=== PATIENT | female | born 1990 | race Two or more races ===

== ENCOUNTER 2017-12-04 21:50 | Emergency (ER) | payer MEDICAID ==
[~2017-12-04] VITALS: Ht 165.1 cm; Wt 77.1 kg
--- NOTE | 2017-12-04 21:55 | Emergency Room Report ---
History of Present Illness General Chief Complaint: Abdominal Pain Source: Patient, EMS Present Illness HPI Patient presents with abdominal pain. She has a history of gastritis. She's been vomiting. She states she is 2 months . She states the pain is severe. She's been vomiting but no blood. There's no fevers. The pain is epigastric and constant. It's burning and she feels acid. No melena. She's recently hospitalized for weak at [facility]. Not given any medications at discharge. No URI sy. No chest pain. No back pain. Allergies: Coded Allergies: No Known Allergies (Unverified , 12/04/17) Patient History Social History: Denies: smoking, alcohol use, drug use Social History Narrative has 2 children at home Last Menstrual Period: unk Now: Yes - 8 weeks : 3 Para: 2 Reviewed Nursing Documentation: PMH: Agreed; PSxH: Agreed Nursing Documentation-PM Past Medical History: No History, Except For Hx Gastrointestinal Problems: Yes - GASTRITIS History Of Psychiatric Problem: Yes - ANXIETY Review of Systems All Other Systems: negative except mentioned in HPI Physical Exam Vital Signs Date Time Temp Pulse Resp B/P (MAP) Pulse Ox O2 Delivery O2 Flow Rate FiO2 12/04/17 21:46 98.0 108 22 153/76 99 Room Air 98.1 Sp02 EP Interpretation: reviewed, normal General Appearance: GCS 15, moderate distress Head: normocephalic Eyes: bilateral eye normal inspection, bilateral eye PERRL ENT: moist mucus membranes Neck: supple Respiratory: lungs clear, normal breath sounds Cardiovascular #1: regular rate, rhythm Cardiovascular #2: 2+ radial (R) Gastrointestinal: normal inspection, no mass, non-distended, no guarding, no rebound, tenderness - epigastric, decreased bowel sounds Musculoskeletal: back normal, normal range of motion Neurologic: alert, oriented x3, grossly normal Psychiatric: anxious - and in pain Skin: normal inspection, warm/dry Medical Decision Making Diagnostic Impression: Primary Impression: Epigastric pain Additional Impression: First trimester ER Course This patient is a 2 months his presents with severe epigastric pain with history of gastritis. Differential includes gastritis, peptic ulcer, GERD , Marguerite-Arora tear, pancreatitis amongst others. She'll be evaluated with labs including a quantitative hCG. She'll be treated with IV hydration, Reglan , Benadryl, pepcid and morphine. In addition to that she'll be given Mylanta and viscous lidocaine. Labs with normal CBC and slightly high WBC. CMP normal and normal lipase. UA clear. Quant = [id number]. Pain returned, not as severe - fentanyl given. Pain is controlled. Able to tolerate PO. Discussed treatment plan and medications prescribed. Some continued pain - percocet given (minimal compared to when presented). Patient stable for outpatient observation and treatment Laboratory Tests Test 12/04/17 22:20 12/05/17 01:10 White Blood Count 11.7 K/UL (4.8-10.8) H Red Blood Count 5.04 M/UL (4.20-5.40) Hemoglobin 14.2 G/DL (12.0-16.0) Hematocrit 40.8 % (37.0-47.0) Mean Corpuscular Volume 81 FL (80-99) Mean Corpuscular Hemoglobin 28.1 PG (27.0-31.0) Mean Corpuscular Hemoglobin Concent 34.7 G/DL (32.0-36.0) Red Cell Distribution Width 11.9 % (11.6-14.8) Platelet Count 286 K/UL (150-450) Mean Platelet Volume 7.4 FL (6.5-10.1) Neutrophils (%) (Auto) 59.9 % (45.0-75.0) Lymphocytes (%) (Auto) 28.0 % (20.0-45.0) Monocytes (%) (Auto) 7.4 % (1.0-10.0) Eosinophils (%) (Auto) 3.7 % (0.0-3.0) H Basophils (%) (Auto) 1.0 % (0.0-2.0) Prothrombin Time 10.6 SEC (9.30-11.50) Prothrombin Time INR 1.0 (0.9-1.1) PTT 27 SEC (23-33) Sodium Level 140 MMOL/L (136-145) Potassium Level 3.5 MMOL/L (3.5-5.1) Chloride Level 105 MMOL/L (98-107) Carbon Dioxide Level 24 MMOL/L (21-32) Anion Gap 11 mmol/L (5-15) Blood Urea Nitrogen 11 mg/dL (7-18) Creatinine 0.8 MG/DL (0.55-1.30) Estimate Glomerular Filtration Rate > 60 mL/min (>60) Glucose Level 101 MG/DL (74-106) Calcium Level 10.3 MG/DL (8.5-10.1) H Total Bilirubin 0.3 MG/DL (0.2-1.0) Aspartate Amino Transferase (AST) 8 U/L (15-37) L Alanine Aminotransferase (ALT) 19 U/L (12-78) Alkaline Phosphatase 83 U/L (46-116) Total Protein 8.4 G/DL (6.4-8.2) H Albumin 4.0 G/DL (3.4-5.0) Globulin 4.4 g/dL Albumin/Globulin Ratio 0.9 (1.0-2.7) L Lipase 119 U/L (73-393) Human Chorionic Gonadotropin, Quant 38824 mIU/mL (1-6) H Urine Color Yellow Urine Appearance Clear Urine pH 6 (4.5-8.0) Urine Specific [place] 1.025 (1.005-1.035) Urine Protein 2+ (NEGATIVE) H Urine Glucose (UA) Negative (NEGATIVE) Urine Ketones Negative (NEGATIVE) Urine Blood Negative (NEGATIVE) Urine Nitrite Negative (NEGATIVE) Urine Bilirubin Negative (NEGATIVE) Urine Urobilinogen Normal MG/DL (0.0-1.0) Urine Leukocyte Esterase 1+ (NEGATIVE) H Urine RBC 2-4 /HPF (0 - 2) H Urine WBC 2-4 /HPF (0 - 2) Urine Squamous Epithelial Cells Few /LPF (NONE/OCC) Urine Bacteria Few /HPF (NONE) Urine Mucus Few /LPF (NONE/OCC) H Last Vital Signs Date Time Temp Pulse Resp B/P (MAP) Pulse Ox O2 Delivery O2 Flow Rate FiO2 12/05/17 03:27 75 15 109/62 100 Room Air 12/05/17 03:12 98.0 Status: improved Disposition: HOME, SELF-CARE Condition: Improved Scripts Famotidine (PEPCID AC) 20 Mg Tablet 20 MG PO DAILY, #30 TAB Prov: Kwadwo Mcfarlane M.D. 12/05/17 Promethazine HCl (Promethegan) 25 Mg Supp.rect 25 MG RECTAL Q8HR PRN for Nausea & Vomiting, #3 SUPP 1 Refill Prov: Kwadwo Mcfarlane M.D. 12/05/17 Promethazine Hcl* (PHENERGAN*) 25 Mg Tablet 25 MG ORAL Q8HR, #8 TAB 1 Refill Prov: Kwadwo Mcfarlane M.D. 12/05/17 Hydrocodone Bit/Acetaminophen 5-325* (NORCO 5-325*) 1 Each Tablet 1 TAB ORAL Q6H PRN for For Pain, #10 TAB 0 Refills Prov: Kwadwo Mcfarlane M.D. 12/05/17 Kwadwo Mcfarlane M.D. Dec 04, 2017 21:55
[2017-12-04] MEDS ORDERED: Morphine Sulfate 4mg/ml Inj (IV USE ONLY) IVP ONE (22:00)
[2017-12-04] MEDS ORDERED: Mylanta II UD 30ml ORAL ONE (22:00)
[2017-12-04] MEDS ORDERED: Metoclopramide 10mg/2ml Inj IVP ONE (22:00)
[2017-12-04] MEDS ORDERED: Lidocaine 2% Visc 15ml soln ORAL ONE (22:00)
[2017-12-04] MEDS ORDERED: DiphenhydrAMINE 50mg/ml Inj IVP ONE (22:00)
[2017-12-04 22:24] LABS: EOSINOPHILS % (AUTO) 3.7 % (0.0-3.0); HEMATOCRIT 40.8 % (37.0-47.0); HEMOGLOBIN 14.2 G/DL (12.0-16.0); MEAN CORPUSCULAR VOLUME 81 FL (80-99); MONOCYTES % (AUTO) 7.4 % (1.0-10.0); NEUTROPHILS % (AUTO) 59.9 % (45.0-75.0); PLATELET COUNT 286 K/UL (150-450); RED BLOOD COUNT 5.04 M/UL (4.20-5.40); RED CELL DISTRIBUTION WIDTH 11.9 % (11.6-14.8); WHITE BLOOD COUNT 11.7 K/UL (4.8-10.8)
[2017-12-04 22:30] VITALS: BP 116/74
[2017-12-04] MEDS ORDERED: fentaNYL 100 mcg/2 mL IV ONE (22:30)
[2017-12-04 22:36] LABS: ANION GAP 11 mmol/L (5-15); BLOOD UREA NITROGEN 11 mg/dL (7-18); CALCIUM 10.3 MG/DL (8.5-10.1); CARBON DIOXIDE 24 MMOL/L (21-32); CHLORIDE 105 MMOL/L (98-107); CREATININE 0.8 MG/DL (0.55-1.30); POTASSIUM 3.5 MMOL/L (3.5-5.1); SODIUM 140 MMOL/L (136-145)
[2017-12-04 22:41] LABS: ALANINE AMINOTRANSFERASE 19 U/L (12-78); ALBUMIN/GLOBULIN RATIO 0.9 (1.0-2.7); ALKALINE PHOSPHATASE 83 U/L (46-116); ASPARTATE AMINO TRANSFERASE 8 U/L (15-37); BILIRUBIN,TOTAL 0.3 MG/DL (0.2-1.0)
[2017-12-05 00:35] VITALS: BP 106/60
[2017-12-05] MEDS ORDERED: fentaNYL 100 mcg/2 mL IV ONE (01:00)
[2017-12-05 01:27] LABS: APPEARANCE,URINE CLEAR; BILIRUBIN, URINE NEGATIVE (NEGATIVE); GLUCOSE, URINE (UA) NEGATIVE (NEGATIVE); KETONES,URINE NEGATIVE (NEGATIVE); LEUKOCYTE ESTERASE ,URINE 1+ (NEGATIVE); NITRITE,URINE NEGATIVE (NEGATIVE); PH,URINE 6 (4.5-8.0); PROTEIN,URINE 2+ (NEGATIVE); UROBILINOGEN,URINE NORMAL MG/DL (0.0-1.0)
[2017-12-05 01:30] VITALS: BP 116/69
[2017-12-05 01:36] LABS: COLOR,URINE YELLOW
[2017-12-05] MEDS ORDERED: PHENERGAN SUPP25 MG RECTAL (03:06)
[2017-12-05] MEDS ORDERED: PEPCID AC20 M2 PO (03:06)
[2017-12-05] MEDS ORDERED: NORCO 5-325 TA1 EACH ORAL (03:06)
[2017-12-05] MEDS ORDERED: PHENERGAN25 M1 ORAL (03:06)
[2017-12-05] MEDS ORDERED: Mylanta II UD 30ml ORAL ONE (03:15)
[2017-12-05] MEDS ORDERED: oxyCODONE HCL/Acetaminophen 5/325mg ORAL ONE (03:15)
[2017-12-05 03:27] VITALS: BP 109/62
== END 2017-12-05 03:27 | disposition home or self-care (01) ==
LOC: EDBD 21:50 → EMR 22:44
DX: O99.611 Diseases of the digestive system complicating pregnancy, first trimester (principal); K29.70 Gastritis, unspecified, without bleeding; O99.341 Other mental disorders complicating pregnancy, first trimester; F41.9 Anxiety disorder, unspecified; Z3A.08 8 weeks gestation of pregnancy
CPT/HCPCS: 36415; 80053; 81003; 83690; 84702; 85025; 85610; 85730; 96361; 96374; 96375; 99285; J1200; J2270; J2765; J3010; S0028

== ENCOUNTER 2017-12-11 12:35 | Emergency (ER) | payer MEDICAID ==
[~2017-12-11] VITALS: Ht 165.1 cm; Wt 77.1 kg
[~2017-12-11 12:35] MED LIST: NORCO 5-325 TA1 EACH ORAL; PEPCID AC20 M2 PO; PHENERGAN SUPP25 MG RECTAL; PHENERGAN25 M1 ORAL
[2017-12-11 13:00] VITALS: BP 107/62
[2017-12-11] MEDS ORDERED: Morphine Sulfate 4mg/ml Inj (IV USE ONLY) IVP ONE ×4 (13:00→17:45)
[2017-12-11 13:27] LABS: BASOPHILS % (AUTO) 0.7 % (0.0-2.0); EOSINOPHILS % (AUTO) 3.2 % (0.0-3.0); HEMATOCRIT 41.3 % (37.0-47.0); HEMOGLOBIN 13.9 G/DL (12.0-16.0); LYMPHOCYTES % (AUTO) 23.2 % (20.0-45.0); MEAN CORPUSCULAR VOLUME 81 FL (80-99); MONOCYTES % (AUTO) 5.8 % (1.0-10.0); NEUTROPHILS % (AUTO) 67.2 % (45.0-75.0); PLATELET COUNT 261 K/UL (150-450); RED BLOOD COUNT 5.09 M/UL (4.20-5.40); RED CELL DISTRIBUTION WIDTH 11.6 % (11.6-14.8); WHITE BLOOD COUNT 11.5 K/UL (4.8-10.8)
[2017-12-11 13:49] LABS: ANION GAP 12 mmol/L (5-15); BLOOD UREA NITROGEN 8 mg/dL (7-18); CALCIUM 9.4 MG/DL (8.5-10.1); CARBON DIOXIDE 24 MMOL/L (21-32); CHLORIDE 102 MMOL/L (98-107); CREATININE 0.7 MG/DL (0.55-1.30); POTASSIUM 3.4 MMOL/L (3.5-5.1); SODIUM 138 MMOL/L (136-145)
[2017-12-11 13:53] LABS: ALANINE AMINOTRANSFERASE 18 U/L (12-78); ALBUMIN 3.9 G/DL (3.4-5.0); ALBUMIN/GLOBULIN RATIO 0.9 (1.0-2.7); ALKALINE PHOSPHATASE 68 U/L (46-116); ASPARTATE AMINO TRANSFERASE 10 U/L (15-37); BILIRUBIN,TOTAL 0.4 MG/DL (0.2-1.0)
[2017-12-11] MEDS ORDERED: Lidocaine 2% Visc 15ml soln ORAL ONE (14:00)
[2017-12-11 14:26] LABS: APPEARANCE,URINE CLEAR; BILIRUBIN, URINE NEGATIVE (NEGATIVE); GLUCOSE, URINE (UA) NEGATIVE (NEGATIVE); KETONES,URINE 1+ (NEGATIVE); LEUKOCYTE ESTERASE ,URINE 2+ (NEGATIVE); NITRITE,URINE NEGATIVE (NEGATIVE); PH,URINE 6.5 (4.5-8.0); PROTEIN,URINE 2+ (NEGATIVE); UROBILINOGEN,URINE NORMAL MG/DL (0.0-1.0)
[2017-12-11 14:29] LABS: COLOR,URINE YELLOW
--- NOTE | 2017-12-11 14:53 | Emergency Room Report ---
History of Present Illness General Chief Complaint: Abdominal Pain Source: Patient, Medical Record (Maye Harry DO) Present Illness HPI This patient has a history of severe gastritis. She states that over the past 6 weeks she has been to several different hospitals for the same symptoms. She states she was admitted to [facility] for one week for the same symptoms. She is at 9 weeks . She states she has severe epigastric pain and gastritis. She states it is intolerable. She was seen here 2 weeks ago and given medications to include [place]. She states that her pain has returned and is severe she cannot tolerate it any longer. She states these are the exact same symptoms she has had previously. (Maye Harry DO) Allergies: Coded Allergies: No Known Allergies (Unverified , 12/04/17) Patient History Past Medical History: see triage record, GERD - Gastritis Social History: Denies: smoking, alcohol use, drug use Now: Yes Reviewed Nursing Documentation: PMH: Agreed; PSxH: Agreed (Maye Hrary DO) Nursing Documentation-PMH Past Medical History: No History, Except For Hx Gastrointestinal Problems: Yes - GASTRITIS (Maye Harry DO) Review of Systems All Other Systems: negative except mentioned in HPI (Maye Harry DO) Physical Exam Vital Signs Date Time Temp Pulse Resp B/P (MAP) Pulse Ox O2 Delivery O2 Flow Rate FiO2 12/11/17 12:47 98.0 114 18 148/69 98 Room Air 98.1 Sp02 EP Interpretation: reviewed, normal General Appearance: no apparent distress, alert, GCS 15, non-toxic Head: normocephalic, atraumatic Eyes: bilateral eye normal inspection, bilateral eye PERRL ENT: hearing grossly normal, normal pharynx, no angioedema, normal voice Neck: full range of motion, supple/symm/no masses Respiratory: chest non-tender, lungs clear, normal breath sounds, no respiratory distress, no retraction, no accessory muscle use, speaking full sentences Cardiovascular #1: regular rate, rhythm, no edema Cardiovascular #2: 2+ carotid (R), 2+ carotid (L), 2+ radial (R), 2+ radial (L) , 2+ dorsalis pedis (R), 2+ dorsalis pedis (L) Gastrointestinal: normal bowel sounds, soft, non-distended, no guarding, no rebound, tenderness - Diffusely TTP worse in the epigastrium Rectal: deferred Musculoskeletal: back normal, gait/station normal, normal range of motion, non- tender Neurologic: alert, oriented x3, responsive, motor strength/tone normal, sensory intact, speech normal Psychiatric: judgement/insight normal, memory normal, mood/affect normal, no suicidal/homicidal ideation Skin: normal color, no rash, warm/dry, well hydrated (Maye Harry DO) Medical Decision Making Diagnostic Impression: Primary Impression: Gastritis Additional Impression: Intractable abdominal pain ER Course This 9 week female presents with severe gastritis. The patient has very severe pain. I am unsure if this patient has undiagnosed peptic ulcer disease or severe gastritis. Another consideration is narcotic seeking behavior. However, she has not undergone upper endoscopy use I do not want assume that this patient has no pathology. She was recently admitted to [facility] with a negative workup. She underwent a very thorough evaluation today here in the emergency department. She underwent extensive laboratory workup to include a CBC, LFTs, lipase, urinalysis, chemistry panel and underwent an ultrasound of her abdomen to assess her gallbladder, liver, pancreas, kidneys. She also underwent an OB ultrasound. All of these studies were unremarkable. Possibly this patient has undiagnosed peptic ulcer disease and needs further evaluation and monitoring by infirmary attendant. It is very concerning and dangerous that this patient is requiring high doses of narcotics. I'm concerned about the effect on the fetus in this . Final disposition per Dr. Wheeler. Laboratory Tests Test 12/11/17 13:00 12/11/17 14:05 White Blood Count 11.5 K/UL (4.8-10.8) H Red Blood Count 5.09 M/UL (4.20-5.40) Hemoglobin 13.9 G/DL (12.0-16.0) Hematocrit 41.3 % (37.0-47.0) Mean Corpuscular Volume 81 FL (80-99) Mean Corpuscular Hemoglobin 27.2 PG (27.0-31.0) Mean Corpuscular Hemoglobin Concent 33.5 G/DL (32.0-36.0) Red Cell Distribution Width 11.6 % (11.6-14.8) Platelet Count 261 K/UL (150-450) Mean Platelet Volume 7.1 FL (6.5-10.1) Neutrophils (%) (Auto) 67.2 % (45.0-75.0) Lymphocytes (%) (Auto) 23.2 % (20.0-45.0) Monocytes (%) (Auto) 5.8 % (1.0-10.0) Eosinophils (%) (Auto) 3.2 % (0.0-3.0) H Basophils (%) (Auto) 0.7 % (0.0-2.0) Sodium Level 138 MMOL/L (136-145) Potassium Level 3.4 MMOL/L (3.5-5.1) L Chloride Level 102 MMOL/L (98-107) Carbon Dioxide Level 24 MMOL/L (21-32) Anion Gap 12 mmol/L (5-15) Blood Urea Nitrogen 8 mg/dL (7-18) Creatinine 0.7 MG/DL (0.55-1.30) Estimate Glomerular Filtration Rate > 60 mL/min (>60) Glucose Level 140 MG/DL (74-106) H Calcium Level 9.4 MG/DL (8.5-10.1) Total Bilirubin 0.4 MG/DL (0.2-1.0) Aspartate Amino Transferase (AST) 10 U/L (15-37) L Alanine Aminotransferase (ALT) 18 U/L (12-78) Alkaline Phosphatase 68 U/L (46-116) Total Protein 8.4 G/DL (6.4-8.2) H Albumin 3.9 G/DL (3.4-5.0) Globulin 4.5 g/dL Albumin/Globulin Ratio 0.9 (1.0-2.7) L Lipase 89 U/L (73-393) Human Chorionic Gonadotropin, Quant 45011 mIU/mL (1-6) H Urine Color Yellow Urine Appearance Clear Urine pH 6.5 (4.5-8.0) Urine Specific [place] 1.020 (1.005-1.035) Urine Protein 2+ (NEGATIVE) H Urine Glucose (UA) Negative (NEGATIVE) Urine Ketones 1+ (NEGATIVE) H Urine Blood Negative (NEGATIVE) Urine Nitrite Negative (NEGATIVE) Urine Bilirubin Negative (NEGATIVE) Urine Urobilinogen Normal MG/DL (0.0-1.0) Urine Leukocyte Esterase 2+ (NEGATIVE) H Urine RBC 0 /HPF (0 - 2) Urine WBC 2-4 /HPF (0 - 2) Urine Squamous Epithelial Cells Moderate /LPF (NONE/OCC) H Urine Bacteria Few /HPF (NONE) (Maye Harry DO) ER Course I spoke extensively with patient. She has had intermittent severe abdominal pain. She becomes comfortable after morphine but then requires more analgesia. DDX: PUD, gastritis, narcotic bowel syndrome, Dr. Villatoro accepted patient in transfer to [facility] (Gabby Wheeler MD) CT/MRI/US Diagnostic Results CT/MRI/US Diagnostic Results : Imaging Test Ordered: US Abd, US OB Impression Normal OB ultrasound with a 9 week +5 day fetus. Normal abdominal ultrasound. Please see official reports in the electronic medical record. (Maye Harry DO) Last Vital Signs Date Time Temp Pulse Resp B/P (MAP) Pulse Ox O2 Delivery O2 Flow Rate FiO2 12/11/17 14:14 98.0 12/11/17 13:00 92 26 107/62 100 Room Air (Maye Harry DO) Disposition: XFER SHT-TRM HOSP Condition: Stable Referrals: [facility],REFERRING (PCP) Maye Harry DO Dec 11, 2017 14:53 Gabby Wheeler MD Dec 11, 2017 16:11
[2017-12-11 15:00] VITALS: BP 110/69
[2017-12-11] MEDS ORDERED: Morphine Sulfate 4mg/ml Inj (IV USE ONLY) ONE (16:10)
[2017-12-11] MEDS ORDERED: LORazepam Inj 2mg/ml 1ml IV ONE (17:45)
[2017-12-11 18:00] VITALS: BP 108/72
--- NOTE | 2017-12-11 18:04 | Diagnostic Imaging Report ---
History: ABD PAIN Exam: US ABDOMEN Comparison: FINDINGS: Visualized portions of the pancreas appear unremarkable. Abdominal aorta and inferior vena cava appear unremarkable. The liver measures 17.7 cm and appears within limits. The right kidney measures 12.6 cm in length, and the left kidney measures 11.8 cm. No hydronephrosis or evidence of free fluid. No gallstones, wall thickening or pericholecystic free fluid. CBD 5 mm. Spleen measures 11 cm. Report of a negative sonographic Cabrera's sign. IMPRESSION: Study appears within limits.
--- NOTE | 2017-12-11 18:06 | Diagnostic Imaging Report ---
History: ABD PAIN Exam: US PELVIS Comparison: None available FINDINGS: Single intrauterine at 9 weeks and 5 days by crown-rump length. heart tones 171 bpm. No evidence of subchorionic hemorrhage seen. The uterus measures 11.7 x 7 x 9.2 cm. The right ovary measures 2.3 x 2 x 2.1 cm and contains a echogenic focus measuring around 1.7 cm which may represent a hemorrhagic corpus luteum cyst. The left ovary measures 2.3 x 1.7 x 2.6 cm. No evidence of adnexal mass or free fluid. IMPRESSION: Single intrauterine at 9 weeks and 5 days by crown-rump length. heart tones 171 bpm. No evidence of subchorionic hemorrhage seen. Possible hemorrhagic corpus luteum cyst right ovary measuring around 1.7 cm.
== END 2017-12-11 18:00 | disposition other institution (70) ==
LOC: EMR 12:52
DX: O99.611 Diseases of the digestive system complicating pregnancy, first trimester (principal); K92.89 Other specified diseases of the digestive system; K29.70 Gastritis, unspecified, without bleeding; K21.9 Gastro-esophageal reflux disease without esophagitis; Z3A.09 9 weeks gestation of pregnancy
CPT/HCPCS: 36415; 76700; 76801; 80053; 81003; 83690; 84702; 85025; 96361; 96374; 96375; 96376; 99284; J2270; S0028